=== PATIENT | female | born 1970 | race Caucasian/White ===

== ENCOUNTER → 2016-09-23 | Day surgery (SDC) | payer BC ==
[2016-09-23] VITALS (11 sets, daily range): BP systolic 106–160; BP diastolic 45–80; PULSE 55–71; TEMP 36.6–37; O2SAT 93–97; Ht 170.2 cm; Wt 113.0 kg
[~2016-09-23] VITALS: Ht 170.2 cm; Wt 113.0 kg
[~2016-09-23] MED LIST: ACETAMINOPHEN 500 MG TAB PO PRN; CYAN100T SQ; ERGO1CAP35 PO; FRS/40 PO; LEVO150T PO; LEVO200T PO; LEVOIUD; LIOT5TAB PO; MULT-506 PO; POTASSIUM 99 PO; PRLSR20 PO
--- NOTE | 2016-09-23 09:53 | Discharge Instructions ---
Discharge Instructions Procedure Procedure Date: Sep 23, 2016. Reason for visit: Paplidema W/Opening Pressure. Discharge Discharge Date: Sep 23, 2016. Discharge Diagnosis: Papilledema. Status post lumbar puncture with opening and closing pressures. Instructions Activity Recommendations: 48 Hours of decreased exertion Return to School/Work: no limitations Recommended Home Diet: Resume Previous Diet Allergies Coded Allergies: Gluten (Verified Allergy, Mild, PER PT -ADVISED, 09/23/16) No Known Drug Allergy (Verified Allergy, Unknown, NONE, 09/23/16) Donita Washington Recommendations: Call your doctor if: * Temperature above 101 degrees * Pain not relieved by pain medicine ordered * There is increased drainage or redness from any incision * You have any unanswered questions or concerns. Your Doctors Instructions noted above were prepared by provider Clemente Moss. Patient Signature Section: Patient Instructions Signature Page Ami Munoz Patient (or Guardian) Signature/Date: I have read and understand the instructions given to me by my caregivers. Caregiver/RN/Doctor Signature/Date: The above-named patient and/or guardian has received patient instructions on this date. + Original Patient Signature Page (only) stays with chart. Please make copy for patient.
--- NOTE | 2016-09-23 10:04 | DIAGNOSTIC IMAGING REPORT ---
LUMBAR PUNCTURE DIAGNOSTIC CLINICAL HISTORY: 46 years-old Female with papilledema and headaches. PROCEDURE: The risks, benefits, and alternatives to the procedure is discussed with the patient who voiced understanding. Written informed consent was obtained. The patient was placed prone on the fluoroscopy table. The lower back was prepped and draped in the usual sterile fashion. 1% lidocaine was used for local anesthesia. A 20-gauge spinal needle was inserted into the L2-L3 interlaminar space, and approximately 10 cc of clear colorless cerebrospinal fluid was removed. Opening pressure was recorded at 23 cm and the closing pressure was measured at 20 cm. The patient tolerated the procedure well. There were no immediate complications. The patient was then transported to the medical treatment unit for further observation. Fluoroscopy time: 0.5 minutes IMPRESSION: 1. Fluoroscopic guided lumbar puncture with removal of approximately 10 cc of cerebrospinal fluid. There were no immediate complications.. 2. Opening and closing pressures as above. The above report was generated using voice recognition software. It may contain grammatical, syntax or spelling errors. Electronically signed by: Blane Moss M.D. 09/23/2016 10:03 AM Dictated Date/Time: 09/23/2016 10:00 AM
[2016-09-23 10:54] LABS: CSF APPEARANCE CLEAR; CSF COLOR COLORLESS; CSF XANTHOCHROMIC NO XANTHOCHROMIA
== END | disposition home or self-care (01) ==
LOC: C.ACU 07:20
PROVIDERS: ATTEND Psychiatry & Neurology Neurology
DX: H47.10 Unspecified papilledema (principal)

== ENCOUNTER → 2016-09-26 | Day surgery (SDC) | payer BC ==
[~2016-09-26] MED LIST changes: -ACETAMINOPHEN 500 MG TAB PO PRN; -FRS/40 PO; -LIOT5TAB PO; -POTASSIUM 99 PO
[2016-09-26 11:08] VITALS: BP 154/88; PULSE 62; TEMP 36.7; O2SAT 96
--- NOTE | 2016-09-26 12:42 | Anesthesiology Progress Note ---
Anesthesia Progress Note Date of Service Sep 26, 2016. Progress Notes Pt is a 46F s/p lumbar puncture at [facility] on 09/23/16. Pt was being evaluated for pseudotumor cerebri and frontal headaches. The pt reports having a worsening frontal headache that is positional. She denies any lightheadedness, dizziness, fever, chills, or change in vision. The pt denies any h/o easy bruising or bleeding. I explained to her the risks/benefits of an epidural blood patch. The pt was agreeable to receiving the epidural blood patch. Consent was obtained from the patient. A timeout was performed. The L3-4 interspace was identified. The area was sterilely prepped and draped. 1% lidocaine skin wheal was placed. A 17 gauge Touhy needle was advanced with +GERTRUDIS to air at 9cm. There was no blood or CSF or paresthesias. The FORENSICS TEAM DIRECTOR sterilely withdrew the pt's blood from her right A/C vein. 27mL of the pt's blood was injected into the epidural space. The pt tolerated the procedure. The pt was instructed to lay flat for 30 minutes, and upon re-evaluation, the pt stated having a much improved MONTOYA. I spoke to the pt about returning to the ER if symptoms worsened or if she developed any fevers, chills, back pain, or leg numbness. The pt was understanding. Vital signs were stable throughout. The pt was otherwise stable for discharge.
--- NOTE | 2016-09-26 12:44 | Discharge Instructions ---
Discharge Instructions Date of Service Sep 26, 2016. Visit Reason for Visit: Intracranial Hypotension Discharge Discharge Diagnosis / Problem: Postdural puncture headache Discharge Goals Goal(s): Decrease discomfort Activity Recommendations Activity Limitations: resume your previous activity Anesthesia . Post Anesthesia Instructions: If you have had General Anesthesia or IV Sedation: * Do not drive today. * Resume driving when surgeon permits. * Do not make important decisions or sign legal documents today. * Call surgeon for: 1. Temperature elevations greater than 101 degrees F. 2. Uncontrollable pain. 3. Excessive bleeding. 4. Persistent nausea and vomiting. 5. Medication intolerance (nausea, vomiting or rash). * For nausea and vomiting use only clear liquids such as: tea, soda, bouillon until nausea subsides, then gradually increase diet as tolerated. * If you have any concerns or questions, call your surgeon's office. If physician is unavailable and it is an emergency, call 911 or go to the nearest emergency room. . Diet Recommendations Recommended Home Diet: no limitations, resume previous diet Procedures Procedures Performed: Epidural blood patch Pending Studies Studies pending at discharge: no Medical Emergencies . Who to Call and When: Medical Emergencies: If at any time you feel your situation is an emergency, please call 911 immediately. . Non-Emergent Contact Non-Emergency issues call your: Primary Care Provider Call Non-Emergent contact if: you have a fever, temperature is above 100.5, your pain is not controlled, your pain is worsening . . "Provider Documentation" section prepared by John Moncada. .
== END | disposition home or self-care (01) ==
LOC: C.ACU 10:44
PROVIDERS: ATTEND Psychiatry & Neurology Neurology
DX: G93.89 Other specified disorders of brain (principal); E03.9 Hypothyroidism, unspecified; Z98.84 Bariatric surgery status; E66.9 Obesity, unspecified

== ENCOUNTER → 2016-11-21 | Outpatient (CLI) | payer BC ==
[~2016-11-21] MED LIST changes: +OPTIRAY 320 IV PRN
--- NOTE | 2016-11-21 16:22 | DIAGNOSTIC IMAGING REPORT ---
CT HEAD VENOGRAM HISTORY: Headache. PSEUDO TUMOR CEREBRI TECHNIQUE: Multiaxial CT images of the head were performed both before and after the intravenous administration of contrast to evaluate the major dural venous structures. 3-D reformations were performed at the workstation by the radiologist. COMPARISON STUDY: None. FINDINGS: No mass, hematoma, midline shift, acute infarct. The ventricles are normal in size. The major dural venous structures are patent. IMPRESSION: No evidence for dural venous sinus thrombosis. No acute intracranial abnormality. Electronically signed by: Mauricio Mendiola M.D. 11/21/2016 4:20 PM Dictated Date/Time: 11/21/2016 4:11 PM
== END | disposition home or self-care (01) ==
LOC: C.CTS 15:33
PROVIDERS: ATTEND Psychiatry & Neurology Neurology
DX: G93.2 Benign intracranial hypertension (principal)

== ENCOUNTER → 2017-07-08 | Outpatient (CLI) | payer OTHER, BC ==
[~2017-07-08] MED LIST changes: +LEVO1IUD2; -LEVOIUD; -OPTIRAY 320 IV PRN
--- NOTE | 2017-07-08 15:02 | DIAGNOSTIC IMAGING REPORT ---
R KNEE 3 VIEWS CLINICAL HISTORY: RIGHT KNEE PAIN S/P INJURY COMPARISON: Right knee radiographs May 08, 2016. FINDINGS: Alignment of the right knee is anatomic. There is no fracture or suspicious lesion. There is moderate joint space narrowing with ossified ptosis of the patellofemoral compartment. There is tricompartmental osteophytosis of the right knee. A small right knee joint effusion is present. IMPRESSION: 1. No acute fracture. 2. Small right knee joint effusion. 3. Moderate osteoarthritis of the right knee, most pronounced within the patellofemoral compartment. Electronically signed by: Cuco Aguilar M.D. 07/08/2017 3:01 PM Dictated Date/Time: 07/08/2017 2:59 PM
== END | disposition home or self-care (01) ==
LOC: C.RAD1850 14:47
PROVIDERS: ATTEND Nurse Practitioner Adult Health
DX: M17.11 Unilateral primary osteoarthritis, right knee (principal); S89.91XA Unspecified injury of right lower leg, initial encounter; X58.XXXA Exposure to other specified factors, initial encounter

== ENCOUNTER 2022-12-20 21:03 | Observation (INO) ==
[2022-12-20] MEDS ORDERED: SODIUM CHLORIDE 0.9% 1,000 ML IV SCH (22:00)
--- NOTE | 2022-12-20 22:04 | Emergency Department Note ---
History of Present Illness General Chief complaint: Syncope Stated complaint: SYNCOPE Time Seen by Provider: 12/20/22 21:31 History of Present Illness This 52-year-old female presents the ER for syncopal episode tonight. Patient states she was at [employer] and had notches with her family and an alcoholic beverage and then shortly afterwards she felt warm clammy lightheaded and briefly passed out while sitting in the chair. She did not fall to the ground. Blood sugar was 220 per nursing by EMS. Patient states she felt fine all day. Patient states she feels fine now and has no current symptoms. She denies chest pain, dyspnea, headache, neck pain, fever, chills, flulike illness. No prior heart disease. No other concerns per patient. Home Medications Medication Instructions Recorded Confirmed Type calcium citrate 500 mg-vitamin D3 1 tab PO DAILY 12/20/22 12/20/22 History 12.5 mcg (500 unit) chewable tablet levothyroxine 200 mcg tablet 200 mcg PO DAILYBB 12/20/22 12/20/22 History loratadine 10 mg tablet (Claritin) 10 mg PO DAILY 12/20/22 12/20/22 History losartan 50 mg tablet 50 mg PO DAILY 12/20/22 12/20/22 History metoprolol succinate 25 mg 25 mg PO BID 12/20/22 12/20/22 History tablet,extended release 24 hr multivit-iron 18 mg-folic acid 400 1 tab PO DAILY 12/20/22 12/20/22 History mcg-calcium 500 mg-minerals tablet (Women's One Daily) omeprazole 20 mg capsule,delayed 20 mg PO DAILY 12/20/22 12/20/22 History release semaglutide (weight loss) 1.7 1.7 mg subcut WK 12/20/22 12/20/22 History mg/0.75 mL subcutaneous pen injector (Wegovy) torsemide 20 mg tablet 20 mg PO [id number] 12/20/22 12/20/22 History Allergies Allergy/AdvReac Type Severity Reaction Status Date / Time gluten Allergy Unknown POSITIVE Verified 12/20/22 22:30 ALLERGY TEST Past Med/Surg History Social History Smoking Status: Never smoker Preferred Language: Liberian Feels Safe at Home: Yes Review of Systems A total of 10 systems reviewed and were otherwise negative Physical Exam Vital Signs Vital Signs - 24 hr 12/20/22 21:10 12/20/22 21:10 12/20/22 21:10 Temperature 36.8 C Temperature Source Oral Pulse Rate - Lying Pulse Rate - Sitting Pulse Rate - Standing Pulse Rate 80 Pulse Rate [Bilateral] 80 Respiratory Rate 16 14 Respiratory Effort / Characteristics Non-Labored Respiratory Depth Normal Respiratory Pattern Regular Blood Pressure - Lying Blood Pressure - Sitting Blood Pressure- Standing Blood Pressure 136/64 Blood Pressure [Right Arm] 136/64 Blood Pressure Mean 88 Blood Pressure Mean [Right Arm] 88 Pulse Oximetry 95 98 95 Oxygen Delivery Method Room Air Room Air Room Air Sepsis Recent Fever Within 48 Hours No Sepsis New/Unexplained Change in Mental Status N/A Sepsis Action Taken by Nursing No Action Required 12/20/22 21:18 12/20/22 21:56 12/20/22 21:56 Temperature Temperature Source Pulse Rate - Lying 78 Pulse Rate - Sitting 85 Pulse Rate - Standing 93 H Pulse Rate 80 Pulse Rate [Bilateral] Respiratory Rate Respiratory Effort / Characteristics Respiratory Depth Respiratory Pattern Blood Pressure - Lying 127/75 Blood Pressure - Sitting 137/86 Blood Pressure- Standing 133/95 Blood Pressure Blood Pressure [Right Arm] Blood Pressure Mean Blood Pressure Mean [Right Arm] Pulse Oximetry 99 Oxygen Delivery Method Room Air Sepsis Recent Fever Within 48 Hours Sepsis New/Unexplained Change in Mental Status Sepsis Action Taken by Nursing 12/20/22 22:00 12/20/22 22:54 Temperature Temperature Source Pulse Rate - Lying Pulse Rate - Sitting Pulse Rate - Standing Pulse Rate Pulse Rate [Bilateral] 76 93 H Respiratory Rate 18 18 Respiratory Effort / Characteristics Respiratory Depth Respiratory Pattern Blood Pressure - Lying Blood Pressure - Sitting Blood Pressure- Standing Blood Pressure Blood Pressure [Right Arm] 122/77 133/95 Blood Pressure Mean Blood Pressure Mean [Right Arm] 92 107 Pulse Oximetry 94 98 Oxygen Delivery Method Room Air Room Air Sepsis Recent Fever Within 48 Hours Sepsis New/Unexplained Change in Mental Status Sepsis Action Taken by Nursing VITALS: Vitals are noted on the nurse's note and reviewed by myself. Vital signs stable. GENERAL: Pleasant female with family present, in no acute distress, nondiaphoretic, well-developed well-nourished. SKIN: The skin was without rashes, erythema, edema, or bruising. There is no tenting of the skin. Capillary reflex less than 2 seconds. HEAD: Normocephalic atraumatic. EARS: External auditory canals clear, EYES: Pupils equal round and reactive to light and accommodation. Conjunctivae without injection, sclerae without icterus. Extraocular movements intact. NOSE: Patent, turbinates without inflammation or discharge. MOUTH: Mucous membranes moist. Pharynx without erythema or exudate. Uvula midline. Airway patent. Tongue does not deviate. NECK: Supple without nuchal rigidity. No lymphadenopathy. No thyromegaly. Cervical spine is nontender. No JVD. HEART: Regular rate and rhythm LUNGS: Clear to auscultation bilaterally without wheezes, rales or rhonchi. No retractions or accessory muscle use. ABDOMEN: Positive bowel sounds x 4. Normal tympanic percussion. Soft, nontender, without masses or organomegaly. Contreras sign negative. No guarding or rebound tenderness. No CVA tenderness MUSCULOSKELETAL: No muscle atrophy, erythema, or edema noted. NEURO: Patient was alert and oriented to person place and time. Normal sensation to light and sharp touch. No focal neurological deficits. Course Administered Medications Discontinued Medications Sodium Chloride (Nss) 1,000 mls @ 999 mls/hr IV .Q1H1M LUPE Stop: 12/20/22 23:00 Last Admin: 12/20/22 23:00 Dose: 999 mls/hr Documented By: CHRISTOPHER Medical Decision Making Medical Records Attestation: I reviewed the patient's medical records. Home Medications Current Medication List: was personally reviewed by dc Laboratory Data Attestation: I reviewed the patient's lab results. 12/20/22 21:50 12/20/22 21:50 Lab Results 12/20/22 Range/Units 21:50 WBC 11.24 H (4.8-10.8) K/ul RBC 4.90 (4.20-5.40) M/uL Hgb 14.9 (12.0-16.0) g/dl Hct 43.8 (37.0-47.0) % MCV 89.4 (80.0-100.0) fL MCH 30.4 (25.0-34.0) pg MCHC 34.0 (32.0-36.0) g/dL RDW Std Deviation 43.3 (36.4-46.3) fL RDW Coeff of Obie 13.2 (11.5-14.5) % Plt Count 371 (130-400) K/uL MPV 9.7 (9.4-12.4) fL Immature Gran % (Auto) 0.4 % Neut % (Auto) 68.5 % Lymph % (Auto) 20.4 % [place] % (Auto) 7.7 % Eos % (Auto) 2.0 % Baso % (Auto) 1.0 % Neut # (Auto) 7.72 H (1.40-6.50) K/uL Lymph # (Auto) 2.29 (1.20-3.40) K/uL [place] # (Auto) 0.86 H (0.11-0.59) K/uL Eos # (Auto) 0.22 (0.00-0.50) K/uL Baso # (Auto) 0.11 (0.00-0.20) K/uL Immature Gran # (Auto) 0.04 (0.01-0.20) K/uL Sodium 136 (136-145) mmol/L Potassium 3.5 (3.5-5.1) mmol/L Chloride 103 (98-107) mmol/L Carbon Dioxide 25 (21-32) mmol/L Anion Gap 8 (3-11) BUN 18 (6-23) mg/dl Creatinine 1.35 H (0.6-1.2) mg/dl Est Cr Clr Drug Dosing Not Reportable Est GFR ( Amer) 51.8 ml/min Est GFR (Non-Af Amer) 44.7 ml/min BUN/Creatinine Ratio 13.3 (10-20) Glucose 96 (70-99(Fasting)) mg/dl Calcium 10.3 (8.6-10.3) mg/dl Magnesium 1.8 (1.7-2.4) mg/dl Total Bilirubin 0.4 (0.2-1.0) mg/dl AST 21 (13-39) U/L ALT 19 (7-52) U/L Alkaline Phosphatase 64 (34-104) U/L Total Creatine Kinase 137 (26-192) U/L Troponin I High Sens 3.5 (0-14) pg/ml Total Protein 8.5 H (6.0-8.3) gm/dl Albumin 4.1 (3.4-5.0) gm/dl Globulin 4.4 H (2.5-4.0) gm/dl Albumin/Globulin Ratio 0.9 (0.9-2) TSH 0.547 (0.300-4.500) uIu/ml HCG, Qual Negative (Negative) Ethyl Alcohol mg/dL < 10.0 (<10.0) mg/dl Imaging Data Attestation: I personally reviewed and interpreted this imaging study as follows: Radiologist's Impression: Head CT 12/20/22 21:57 Exam(s): CT HEAD Without Contrast EXAM: CT Head Without Intravenous Contrast CLINICAL HISTORY: Reason for exam: syncope. TECHNIQUE: Axial computed tomography images of the head/brain without intravenous contrast. CTDI is 35.65 mGy and DLP is 547.75 mGy-cm. Automated exposure control was utilized for the study. A dose lowering technique was utilized adhering to the principles of ALARA. COMPARISON: 11/21/2016 FINDINGS: Brain: Unremarkable. No hemorrhage. No significant white matter disease. No edema. Ventricles: Unremarkable. No ventriculomegaly. Bones/joints: Unremarkable. No acute fracture. Soft tissues: Unremarkable. Sinuses: Unremarkable as visualized. No acute sinusitis. Mastoid air cells: Unremarkable as visualized. No mastoid effusion. IMPRESSION: Normal head/brain CT. Electronically signed by: Bjorn Childs M.D. 12/20/22 23:00 PM [facility] Narrative Prior records/ancillary studies reviewed. Triage Nursing notes reviewed. Additional history obtained from family. The patient's history was concerning for syncope. Differential diagnosis: Etiologies such as vasovagal event, infection, hypoglycemia, electrolyte abnormalities, cardiac sources, intracerebral event, toxicologic, neurologic, as well as others were entertained. Physical examination: Patient is alert, interactive and well-appearing ER treatment provided: IV hydration with normal saline On reassessment the patient felt better. An order was placed for continuous cardiac monitoring. The monitor shows a rate of 60-100 with a sinus rhythm per my interpretation. Diagnostics interpretation by me: ECG: ordered for syncope ECG: Normal sinus, normal intervals, Q waves in the inferior leads, no acute ST- T wave changes, rate of 87. Impression normal sinus rhythm Q waves in the inferior leads independently interpreted by myself I think arrhythmia is unlikely. EKG shows normal sinus rhythm with no interval abnormalities such as QT prolongation or WPW. There are no findings to suggest Brugada syndrome. Cardiac monitoring in the emergency department reveals no tachycardic or bradycardic dysrhythmia. Hypertrophic cardiomyopathy was considered but there are no clear historical elements pointing toward this. EKG is not suggestive. The QRS voltage is not extremely large The labs Independently Interpreted by myself revealed stable H&H, negative troponin, euthyroid, negative hCG Creatinine 1.35. No priors for review Imaging studies: Head CT negative for intracranial bleed per my independent interpretation. Report was reviewed as above Consultation: A consultation was placed with the hospitalist. The case was discussed and diagnostics were reviewed. The patient was evaluated in the ER for further treatment. This appears to be consistent with syncope while sitting. No acute findings on laboratory testing. Nonischemic EKG. Stable labs. Patient is agreeable treatment plan of admission. Medicine was consulted and the case is discussed. Patient will be admitted for further evaluation and work-up for her syncopal episode tonight. By the evaluation outlined above emergent etiologies such as infection, hypoglycemia, electrolyte abnormalities, toxicologic, as well as others were deemed relatively unlikely. The pt informed about the findings as listed above. All questions were answered and pleased with the treatment. The chart was completed utilizing [employer] Speech voice recognition software. Grammatical errors, random word insertions, pronoun errors, and incomplete sentences are an occassional consequence of this system due to software limitations, ambient noise, and hardware issues. Any formal questions or concerns about the content, text, or information contained within the body of this dictation should be directly addressed to the physician construction assistant for clarification. Impression & Plan Syncope Discharge Plan Visit Data Chief Complaint: Syncope Stated Complaint: SYNCOPE ED Provider: Jake Egan ED Midlevel Provider: Charu Doe Discharge Problem: Syncope Patient Disposition: Admitted As Inpatient Condition: Good Forms Stand Alone Forms: My [facility] [employer] Prescriptions Prescriptions: No Action losartan 50 mg tablet 50 mg PO DAILY torsemide 20 mg tablet 20 mg PO [id number] Rx Instructions: TAKES FRIDAY THROUGH FRIDAY. omeprazole 20 mg capsule,delayed release(DR/EC) 20 mg PO DAILY levothyroxine 200 mcg tablet 200 mcg PO DAILYBB metoprolol succinate 25 mg tablet extended release 24 hr 25 mg PO BID loratadine [Claritin] 10 mg Tablet 10 mg PO DAILY Women's One Daily 18 mg iron-400 mcg-500 mg Ca Tablet 1 tab PO DAILY Wegovy 1.7 mg/0.75 mL pen injector 1.7 mg SUBCUT WK Rx Instructions: TAKES SUNDAYS calcium citrate-vitamin D3 500 mg-12.5 mcg (500 unit) Tablet,Chewable 1 tab PO DAILY Referrals Referrals: Jude Cano MD [Primary Care Provider] - Discharge Problem: Syncope Qualifiers: Syncope type: unspecified Qualified Code(s): R55 - Syncope and collapse
[2022-12-20 22:14] LABS: Basophils # (auto) 0.11 K/uL (0.00-0.20); Eosinophils # (auto) 0.22 K/uL (0.00-0.50); Hematocrit (blood only) 43.8 % (37.0-47.0); Hemoglobin 14.9 g/dl (12.0-16.0); Immature Granulocytes # (auto) 0.04 K/uL (0.01-0.20); Immature Granulocytes % (auto) 0.4 %; Lymphocytes # (auto) 2.29 K/uL (1.20-3.40); Lymphocytes % (auto) 20.4 %; Mean Corpuscular Hemoglobin 30.4 pg (25.0-34.0); Mean Corpuscular Volume 89.4 fL (80.0-100.0); Mean Platelet Volume 9.7 fL (9.4-12.4); Monocytes # (auto) 0.86 K/uL (0.11-0.59); Monocytes % (auto) 7.7 %; Neutrophils # (auto) 7.72 K/uL (1.40-6.50); Neutrophils % (auto) 68.5 %; Platelet Count 371 K/uL (130-400); RDW Coefficient of Variation 13.2 % (11.5-14.5); RDW Standard Deviation 43.3 fL (36.4-46.3); White Blood Count 11.24 K/ul (4.8-10.8)
[2022-12-20 22:25] LABS: Alanine Aminotransferase 19 U/L (7-52); Albumin Globulin Ratio 0.9 (0.9-2); Albumin Level 4.1 gm/dl (3.4-5.0); Alkaline Phosphatase 64 U/L (34-104); Anion Gap 8 (3-11); Aspartate Aminotransferase 21 U/L (13-39); BUN Creatinine Ratio 13.3 (10-20); Bilirubin,Total 0.4 mg/dl (0.2-1.0); Blood Urea Nitrogen 18 mg/dl (6-23); Calcium 10.3 mg/dl (8.6-10.3); Carbon Dioxide 25 mmol/L (21-32); Chloride 103 mmol/L (98-107); Creatine Kinase 137 U/L (26-192); Est GFR (African American) 51.8 ml/min; Est GFR (Non-African American) 44.7 ml/min; Globulin 4.4 gm/dl (2.5-4.0); Glucose 96 mg/dl (70-99(Fasting)); Magnesium 1.8 mg/dl (1.7-2.4); Potassium 3.5 mmol/L (3.5-5.1); Sodium 136 mmol/L (136-145); Total Protein 8.5 gm/dl (6.0-8.3)
[2022-12-20 22:29] LABS: Pregnancy Test, Serum Negative (Negative)
[2022-12-20 22:31] LABS: Troponin I High Sensitivity 3.5 pg/ml (0-14)
[2022-12-20 22:41] LABS: Thyroid Stimulating Hormone 0.547 uIu/ml (0.300-4.500)
--- NOTE | 2022-12-20 23:01 | CT Scan Report ---
Exam(s): CT HEAD Without Contrast EXAM: CT Head Without Intravenous Contrast CLINICAL HISTORY: Reason for exam: syncope. TECHNIQUE: Axial computed tomography images of the head/brain without intravenous contrast. CTDI is 35.65 mGy and DLP is 547.75 mGy-cm. Automated exposure control was utilized for the study. A dose lowering technique was utilized adhering to the principles of ALARA. COMPARISON: 11/21/2016 FINDINGS: Brain: Unremarkable. No hemorrhage. No significant white matter disease. No edema. Ventricles: Unremarkable. No ventriculomegaly. Bones/joints: Unremarkable. No acute fracture. Soft tissues: Unremarkable. Sinuses: Unremarkable as visualized. No acute sinusitis. Mastoid air cells: Unremarkable as visualized. No mastoid effusion. IMPRESSION: Normal head/brain CT. Electronically signed by: Bjorn Childs M.D. 12/20/22 23:00 PM
[2022-12-20 23:12] LABS: Appearance Urine Cloudy (Clear); Bacteria Urine Automated Negative (Negative); Blood Urine Negative (Negative); Color Urine Dark Yellow; Epithelial Cell Urine Auto >30 /lpf (0-5); Glucose Urine UA Negative (Negative); Ketones Urine Trace (Negative); Leukocyte Esterase Urine Trace (Negative); Nitrite Urine Negative (Negative); Protein Urine 1+ (Negative); RBC Urine Automated 0-4 /hpf (0-4); Specific Gravity Urine 1.023 (1.000-1.030); Urobilinogen Urine Negative (Negative)
[2022-12-20 23:23] LABS: Bilirubin Urine 1+ (Negative)
[2022-12-20 23:25] LABS: Mucus Urine Present (None Prsent)
[2022-12-20] MEDS ORDERED: MAGNESIUM SULFATE / D5W 1 GM/100 ML BAG IV ONE (23:45)
[2022-12-21] MEDS ORDERED: NSS + 20MEQ KCL 20 MEQ/1,000 ML BAG IV ONE (00:30)
--- NOTE | 2022-12-21 00:52 | History & Physical Report ---
Date of Service December 21, 2022 Assessment & Plan (1) Syncope: Plan: Possible orthostasis given mild clinical dehydration on the basis of ARF, ketonuria Rule out arrhythmia; structural cardiac pathology, hx loculated pericardial effusion from TTEJan2022 hx diastolic dysfunction (EF 60 to 65%, TTE 2022), patient on the dry side hypertension, stable History of PVCs JONATHAN currently not on CPAP following weight loss from gastric bypass surgery as per patient account hypothyroidism, euthyroid as of today's TSH prediabetes, hemoglobin A1c of 6.20 July 2022 past tobacco abuse OBS Medical telemetry Check orthostatic vitals Monitor creatinine response to IVF Hold losartan until creatinine back to baseline Update TTE given syncope and history of pericardial effusion DVT prophylaxis. Boxbenox subcu Full code Text document was generated using oroeco voice recognition software. It may contain grammatical or spelling errors. Kindly contact undersigned for clarification of any documentation item in question. History of Present Illness Chief Complaint: Syncope Primary Care Provider: Jude Cano MD History obtained from patient and records. Medical history significant for diastolic dysfunction (EF 60 to 65%, TTE 2022), pericardial effusion as per records, hypertension, PVCs, JONATHAN currently not on CPAP following weight loss from gastric bypass surgery, GERD, celiac disease, hypothyroidism, prediabetes, MGUS, pseudotumor cerebri as per records, past tobacco abuse. Patient was having dinner with friends and family last night. Shortly after consuming an alcoholic beverage, patient felt clammy, lightheaded. Transient syncopal event witnessed by family and friends. No witnessed seizures. No previous episodes. No headache, no chest pain, no SOB, no palpitations, no abdominal pain. No prior episodes. Patient brought to the ER for evaluation. 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 Allergies Allergy/AdvReac Type Severity Reaction Status Date / Time gluten Allergy Unknown POSITIVE Verified 12/20/22 22:30 ALLERGY TEST Home Medications Medication Instructions Recorded Confirmed Type calcium citrate 500 mg-vitamin D3 1 tab PO DAILY 12/20/22 12/20/22 History 12.5 mcg (500 unit) chewable tablet levothyroxine 200 mcg tablet 200 mcg PO DAILYBB 12/20/22 12/20/22 History loratadine 10 mg tablet (Claritin) 10 mg PO DAILY 12/20/22 12/20/22 History losartan 50 mg tablet 50 mg PO DAILY 12/20/22 12/20/22 History metoprolol succinate 25 mg 25 mg PO BID 12/20/22 12/20/22 History tablet,extended release 24 hr multivit-iron 18 mg-folic acid 400 1 tab PO DAILY 12/20/22 12/20/22 History mcg-calcium 500 mg-minerals tablet (Women's One Daily) omeprazole 20 mg capsule,delayed 20 mg PO DAILY 12/20/22 12/20/22 History release semaglutide (weight loss) 1.7 1.7 mg subcut WK 12/20/22 12/20/22 History mg/0.75 mL subcutaneous pen injector (Wegovy) torsemide 20 mg tablet 20 mg PO 5XWK 12/20/22 12/20/22 History Past Med/Surg History Social History Smoking Status: Former smoker Tobacco Type: Cigarettes Smoking End Date: 2014; Second Hand Exposure: No; Hx Alcohol Use: Yes Alcohol type: wine and hard liquor Hx Substance Use: No Preferred Language: Lithuanian Communication Ability: Effective [employer]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 Beliefs That Will Affect Care: None Current Living Situation: Spouse Current Living Situation Comment: lives with jacklyn Other Information That Helps Us Care for You: No Feels Safe at Home: Yes Safety Concerns: Feels Safe At This Time Assistive Devices: None Review of Systems Review of Systems: As per HPI, all other systems reviewed and negative Physical Exam Physical Exam: GENERAL: Comfortable, pleasant, morbidly obese, no respiratory distress SKIN: Normal color, warm HEENT: [place] palpebral conjunctivae, no ptosis, dry buccal mucosa NECK : Supple, short neck, no tenderness CHEST : CTA, no tenderness HEART : RRR, no obvious murmurs ABDOMEN: Some distention, nontender EXTREMITIES : Minimal LE swelling, no LE tenderness, no other conspicuous deformities noted NEUROLOGIC : Coherent, no facial asymmetry, no other gross focality Results & Data Results & Data Vital Signs (Past 12 Hours) Vital Signs Temp Pulse Pulse Resp BP BP Pulse Ox 12/20/22 23:00 74 15 124/88 97 12/20/22 22:54 93 H 18 133/95 98 12/20/22 22:00 76 18 122/77 94 12/20/22 21:56 99 12/20/22 21:18 80 12/20/22 21:10 80 14 136/64 95 12/20/22 21:10 98 12/20/22 21:10 36.8 C 80 16 136/64 95 O2 Del Method 12/20/22 23:00 Room Air 12/20/22 22:54 Room Air 12/20/22 22:00 Room Air 12/20/22 21:56 Room Air 12/20/22 21:18 12/20/22 21:10 Room Air 12/20/22 21:10 Room Air 12/20/22 21:10 Room Air Laboratory Results Laboratory Results WBC 11.24 K/ul (4.8-10.8) H 12/20/22 21:50 RBC 4.90 M/uL (4.20-5.40) 12/20/22 21:50 Hgb 14.9 g/dl (12.0-16.0) 12/20/22 21:50 Hct 43.8 % (37.0-47.0) 12/20/22 21:50 MCV 89.4 fL (80.0-100.0) 12/20/22 21:50 MCH 30.4 pg (25.0-34.0) 12/20/22 21:50 MCHC 34.0 g/dL (32.0-36.0) 12/20/22 21:50 RDW Std Deviation 43.3 fL (36.4-46.3) 12/20/22 21:50 RDW Coeff of Obie 13.2 % (11.5-14.5) 12/20/22 21:50 Plt Count 371 K/uL (130-400) 12/20/22 21:50 MPV 9.7 fL (9.4-12.4) 12/20/22 21:50 Immature Gran % (Auto) 0.4 % 12/20/22 21:50 Neut % (Auto) 68.5 % 12/20/22 21:50 Lymph % (Auto) 20.4 % 12/20/22 21:50 [place] % (Auto) 7.7 % 12/20/22 21:50 Eos % (Auto) 2.0 % 12/20/22 21:50 Baso % (Auto) 1.0 % 12/20/22 21:50 Neut # (Auto) 7.72 K/uL (1.40-6.50) H 12/20/22 21:50 Lymph # (Auto) 2.29 K/uL (1.20-3.40) 12/20/22 21:50 [place] # (Auto) 0.86 K/uL (0.11-0.59) H 12/20/22 21:50 Eos # (Auto) 0.22 K/uL (0.00-0.50) 12/20/22 21:50 Baso # (Auto) 0.11 K/uL (0.00-0.20) 12/20/22 21:50 Immature Gran # (Auto) 0.04 K/uL (0.01-0.20) 12/20/22 21:50 Sodium 136 mmol/L (136-145) 12/20/22 21:50 Potassium 3.5 mmol/L (3.5-5.1) 12/20/22 21:50 Chloride 103 mmol/L (98-107) 12/20/22 21:50 Carbon Dioxide 25 mmol/L (21-32) 12/20/22 21:50 Anion Gap 8 (3-11) 12/20/22 21:50 BUN 18 mg/dl (6-23) 12/20/22 21:50 Creatinine 1.35 mg/dl (0.6-1.2) H 12/20/22 21:50 Est Cr Clr Drug Dosing Not Reportable 12/20/22 21:50 Est GFR ( Amer) 51.8 ml/min 12/20/22 21:50 Est GFR (Non-Af Amer) 44.7 ml/min 12/20/22 21:50 BUN/Creatinine Ratio 13.3 (10-20) 12/20/22 21:50 Glucose 96 mg/dl (70-99(Fasting)) 12/20/22 21:50 Calcium 10.3 mg/dl (8.6-10.3) 12/20/22 21:50 Magnesium 1.8 mg/dl (1.7-2.4) 12/20/22 21:50 Total Bilirubin 0.4 mg/dl (0.2-1.0) 12/20/22 21:50 AST 21 U/L (13-39) 12/20/22 21:50 ALT 19 U/L (7-52) 12/20/22 21:50 Alkaline Phosphatase 64 U/L (34-104) 12/20/22 21:50 Total Creatine Kinase 137 U/L (26-192) 12/20/22 21:50 Troponin I High Sens 3.5 pg/ml (0-14) 12/20/22 21:50 Total Protein 8.5 gm/dl (6.0-8.3) H 12/20/22 21:50 Albumin 4.1 gm/dl (3.4-5.0) 12/20/22 21:50 Globulin 4.4 gm/dl (2.5-4.0) H 12/20/22 21:50 Albumin/Globulin Ratio 0.9 (0.9-2) 12/20/22 21:50 TSH 0.547 uIu/ml (0.300-4.500) 12/20/22 21:50 HCG, Qual Negative (Negative) 12/20/22 21:50 Urine Color Dark Yellow 12/20/22 23:00 Urine Appearance Cloudy (Clear) A 12/20/22 23:00 Urine pH 5.0 (4.5-7.5) 12/20/22 23:00 Ur Specific [place] 1.023 (1.000-1.030) 12/20/22 23:00 Urine Protein 1+ (Negative) H 12/20/22 23:00 Urine Glucose (UA) Negative (Negative) 12/20/22 23:00 Urine Ketones Trace (Negative) H 12/20/22 23:00 Urine Blood Negative (Negative) 12/20/22 23:00 Urine Nitrite Negative (Negative) 12/20/22 23:00 Urine Bilirubin 1+ (Negative) H 12/20/22 23:00 Urine Urobilinogen Negative (Negative) 12/20/22 23:00 Ur Leukocyte Esterase Trace (Negative) H 12/20/22 23:00 Urine WBC (Auto) 5-10 /hpf (0-5) H 12/20/22 23:00 Urine RBC (Auto) 0-4 /hpf (0-4) 12/20/22 23:00 U Hyaline Cast (Auto) 10-30 /lpf (0-5) H 12/20/22 23:00 U Epithel Cells (Auto) >30 /lpf (0-5) H 12/20/22 23:00 Urine Bacteria (Auto) Negative (Negative) 12/20/22 23:00 Urine Mucus Present (None Prsent) A 12/20/22 23:00 Ethyl Alcohol mg/dL < 10.0 mg/dl (<10.0) 12/20/22 21:[address] 12/20/22 21:57 Exam(s): CT HEAD Without Contrast EXAM: CT Head Without Intravenous Contrast CLINICAL HISTORY: Reason for exam: syncope. TECHNIQUE: Axial computed tomography images of the head/brain without intravenous contrast. CTDI is 35.65 mGy and DLP is 547.75 mGy-cm. Automated exposure control was utilized for the study. A dose lowering technique was utilized adhering to the principles of ALARA. COMPARISON: 11/21/2016 FINDINGS: Brain: Unremarkable. No hemorrhage. No significant white matter disease. No edema. Ventricles: Unremarkable. No ventriculomegaly. Bones/joints: Unremarkable. No acute fracture. Soft tissues: Unremarkable. Sinuses: Unremarkable as visualized. No acute sinusitis. Mastoid air cells: Unremarkable as visualized. No mastoid effusion. IMPRESSION: Normal head/brain CT. Electronically signed by: Bjorn Childs M.D. 12/20/22 23:00 PM Diagnostic Findings Chest x-ray as per my interpretation borderline cardiomegaly, atelectasis EKG as per my interpretation : Rate 90, NSR, normal axis, inferior infarct, nonspecific T wave abnormalities (1) Syncope Syncope type: unspecified Qualified Code(s): R55 - Syncope and collapse
[2022-12-21] MEDS ORDERED: oxyCODONE HCL IR 5 MG TAB (IMMEDIATE RELEASE) PO PRN (00:55)
[2022-12-21] MEDS ORDERED: PROMETHAZINE HCL 12.5 MG in SODIUM CHLORIDE 0.9% 50 ML IV PRN (00:55)
[2022-12-21 04:31] LABS: Influenza A virus by PCR Negative (Neg); Influenza B virus by PCR Negative (Neg); RSV by PCR Negative (Neg); SARS CoV2 RNA(COVID-19) Ceph NEGATIVE (Negative)
[2022-12-21] MEDS ORDERED: ACETAMINOPHEN 325 MG TAB PO PRN (05:15)
[2022-12-21] MEDS ORDERED: PANTOprazole 40 MG TAB PO SCH (06:30)
[2022-12-21] MEDS ORDERED: LEVOTHYROXINE SODIUM 200 MCG TABLET PO SCH (06:30)
[2022-12-21 08:16] LABS: Basophils # (auto) 0.08 K/uL (0.00-0.20); Basophils % (auto) 0.9 %; Eosinophils # (auto) 0.15 K/uL (0.00-0.50); Eosinophils % (auto) 1.8 %; Hematocrit (blood only) 39.6 % (37.0-47.0); Hemoglobin 13.6 g/dl (12.0-16.0); Immature Granulocytes # (auto) 0.03 K/uL (0.01-0.20); Immature Granulocytes % (auto) 0.4 %; Lymphocytes # (auto) 2.14 K/uL (1.20-3.40); Mean Corpuscular Hemoglobin 30.9 pg (25.0-34.0); Mean Corpuscular Hgb Conc 34.3 g/dL (32.0-36.0); Mean Platelet Volume 9.9 fL (9.4-12.4); Monocytes # (auto) 0.62 K/uL (0.11-0.59); Monocytes % (auto) 7.2 %; Neutrophils # (auto) 5.54 K/uL (1.40-6.50); Neutrophils % (auto) 64.7 %; Platelet Count 306 K/uL (130-400); RDW Coefficient of Variation 13.4 % (11.5-14.5); RDW Standard Deviation 44.2 fL (36.4-46.3); White Blood Count 8.56 K/ul (4.8-10.8)
[2022-12-21 08:36] LABS: BUN Creatinine Ratio 14.9 (10-20); Calcium 9.4 mg/dl (8.6-10.3); Creatinine Clr Calc Pharmacy 77.8 ml/min; Est GFR (African American) 63.6 ml/min; Est GFR (Non-African American) 54.9 ml/min; Potassium 4.4 mmol/L (3.5-5.1)
[2022-12-21] MEDS ORDERED: LORATADINE 10 MG TAB PO SCH (09:00)
[2022-12-21] MEDS ORDERED: ENOXAPARIN INJ 40 MG/0.4 ML SYR SQ SCH (09:00)
[2022-12-21] MEDS ORDERED: METOPROLOL SUCC 25MG EXT REL TAB PO SCH (09:00)
[2022-12-21] MEDS ORDERED: INFLUENZA VIRUS QUADRIVALENT VACCINE (IIV4) 0.5 ML SYR IM ONE (09:00)
[2022-12-21] MEDS ORDERED: CEROVITE ADV FORMULA TAB PO SCH (09:00)
--- NOTE | 2022-12-21 10:08 | XRay Report ---
XR chest 1V portable CLINICAL HISTORY: renal failure TECHNIQUE: Single frontal radiograph of the chest was obtained. Comparison: None available at the time of this dictation. FINDINGS: No lines and tubes are seen. The cardiomediastinal silhouette is normal. The lungs are clear. No evid ence of pleural effusion or pneumothorax. IMPRESSION: No acute chest disease. ACT 112: Negative or not required by law. Electronically signed by: Uche Almazan M.D. 12/21/2022 10:07 AM
--- NOTE | 2022-12-21 13:29 | Hospitalist Progress Note ---
Date of Service December 21, 2022 Assessment & Plan (1) Syncope: Plan: per admitting service notes with addendum: Syncope secondary to Dehydration, in the setting of Alcohol Intake Ortho VS: negative Crea slightly increased to 1.[address] head: no acute process Echo: no pericardial effusion EF 60-65% Grade 2 Diastolic Dysfunction Telemetry: no arrhythmia feeling better crea normalized discharge to home, encouraged increase fluid intake PCP ff up this week hx diastolic dysfunction (EF 60 to 65%, TTE 2022), patient on the dry side hypertension, stable History of PVCs JONATHAN currently not on CPAP following weight loss from gastric bypass surgery as per patient account hypothyroidism, euthyroid as of today's TSH prediabetes, hemoglobin A1c of 6.20 July 2022 past tobacco abuse DVT prophylaxis. Lovenox subcu Full code plan of care discussed with patient in detail and at length all questions answered she is understanding, agreeable, comfortable with the plan of care Admission and Anticipated Discharge Date Admission Date: December 21, 2022 Subjective FF UP FOR SYNCOPE, ETC seen resting in bed, comfortable in good spirits states she feels better overall no chest pain, dyspnea, palpitations, dizziness ambulating in the room with no problems called in the afternoon to relay echo result still feeling fine states she is ok for discharge Review of Systems Review of Systems: all noted and negative except for above Physical Exam Physical Exam: General- oriented x 3, not in distress, speaks in sentences with no effort or accessory muscle use Eyes- anicteric Neck- no JVD Lungs- clear breath sounds bilaterally, no rales/wheezes Heart- normal rate, regular rhythm; no murmurs Abdomen- normal bowel sounds, nondistended, soft, nontender Extremities- no pretibial edema, no calf tenderness Neuro- alert, oriented x 3; no gross focal neurologic deficits Skin- warm & dry Results & Data Results & Data Vital Signs (Past 12 Hours) Vital Signs Temp Pulse Pulse Pulse Resp BP BP 12/21/22 11:30 36.6 C 53 L 15 118/79 12/21/22 10:21 69 12/21/22 08:19 36.5 C 70 15 120/82 12/21/22 05:21 36.6 C 66 20 135/84 12/21/22 05:10 74 12/21/22 03:29 12/21/22 02:00 74 108/61 Pulse Ox O2 Del Method 12/21/22 11:30 97 Room Air 12/21/22 10:21 12/21/22 08:19 95 Room Air 12/21/22 05:21 95 Room Air 12/21/22 05:10 12/21/22 03:29 Room Air 12/21/22 02:00 93 Room Air all noted and reviewed including below (1) Syncope Syncope type: unspecified Qualified Code(s): R55 - Syncope and collapse
--- NOTE | 2022-12-21 13:48 | Discharge Summary ---
Discharge Summary Date of Service December 21, 2022 Notes For Next Care Provider Medication Changes From Visit None Admission HPI Per Admitting Provider History obtained from patient and records. Medical history significant for diastolic dysfunction (EF 60 to 65%, TTE 2022), pericardial effusion as per records, hypertension, PVCs, JONATHAN currently not on CPAP following weight loss from gastric bypass surgery, GERD, celiac disease, hypothyroidism, prediabetes, MGUS, pseudotumor cerebri as per records, past tobacco abuse. Patient was having dinner with friends and family last night. Shortly after consuming an alcoholic beverage, patient felt clammy, lightheaded. Transient syncopal event witnessed by family and friends. No witnessed seizures. No previous episodes. No headache, no chest pain, no SOB, no palpitations, no abdominal pain. No prior episodes. Patient brought to the ER for evaluation. 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 Admission Exam Per Admitting Provider GENERAL: Comfortable, pleasant, morbidly obese, no respiratory distress SKIN: Normal color, warm HEENT: [place] palpebral conjunctivae, no ptosis, dry buccal mucosa NECK : Supple, short neck, no tenderness CHEST : CTA, no tenderness HEART : RRR, no obvious murmurs ABDOMEN: Some distention, nontender EXTREMITIES : Minimal LE swelling, no LE tenderness, no other conspicuous deformities noted NEUROLOGIC : Coherent, no facial asymmetry, no other gross focality Principal Dx & Hospital Course #1 = Principal Diagnosis (1) Syncope: per admitting service notes with addendum: Syncope secondary to Dehydration, in the setting of Alcohol Intake Ortho VS: negative Crea slightly increased to 1.[address] head: no acute process Echo: no pericardial effusion EF 60-65% Grade 2 Diastolic Dysfunction Left ventricular wall motion abnormalities No significant valvular disease Telemetry: no arrhythmia feeling better crea normalized discharge to home, encouraged increase fluid intake PCP ff up this week hx diastolic dysfunction (EF 60 to 65%, TTE 2022), patient on the dry side hypertension, stable History of PVCs JONATHAN currently not on CPAP following weight loss from gastric bypass surgery as per patient account hypothyroidism, euthyroid as of today's TSH prediabetes, hemoglobin A1c of 6.20 July 2022 past tobacco abuse DVT prophylaxis. Lovenox subcu Full code plan of care discussed with patient in detail and at length all questions answered she is understanding, agreeable, comfortable with the plan of care Discharge Exam General- oriented x 3, not in distress, speaks in sentences with no effort or accessory muscle use Eyes- anicteric Neck- no JVD Lungs- clear breath sounds bilaterally, no rales/wheezes Heart- normal rate, regular rhythm; no murmurs Abdomen- normal bowel sounds, nondistended, soft, nontender Extremities- no pretibial edema, no calf tenderness Neuro- alert, oriented x 3; no gross focal neurologic deficits Skin- warm & dry Updated Medication List Medication Instructions Recorded Confirmed Type calcium citrate 500 mg-vitamin D3 1 tab PO DAILY 12/20/22 12/20/22 History 12.5 mcg (500 unit) chewable tablet levothyroxine 200 mcg tablet 200 mcg PO DAILYBB 12/20/22 12/20/22 History loratadine 10 mg tablet (Claritin) 10 mg PO DAILY 12/20/22 12/20/22 History losartan 50 mg tablet 50 mg PO DAILY 12/20/22 12/20/22 History metoprolol succinate 25 mg 25 mg PO BID 12/20/22 12/20/22 History tablet,extended release 24 hr multivit-iron 18 mg-folic acid 400 1 tab PO DAILY 12/20/22 12/20/22 History mcg-calcium 500 mg-minerals tablet (Women's One Daily) omeprazole 20 mg capsule,delayed 20 mg PO DAILY 12/20/22 12/20/22 History release semaglutide (weight loss) 1.7 1.7 mg subcut WK 12/20/22 12/20/22 History mg/0.75 mL subcutaneous pen injector (Mylavroseanne) torsemide 20 mg tablet 20 mg PO 5XWK 12/20/22 12/20/22 History Hospital Stay Data Consultations 12/20/22 23:14 ED Decision to Admit Stat Diagnostic Imagining Performed Laboratory Results WBC 8.56 K/ul (4.8-10.8) 12/21/22 07:22 RBC 4.40 M/uL (4.20-5.40) 12/21/22 07:22 Hgb 13.6 g/dl (12.0-16.0) 12/21/22 07:22 Hct 39.6 % (37.0-47.0) 12/21/22 07: MCV 90.0 fL (80.0-100.0) 12/21/22 07: MCH 30.9 pg (25.0-34.0) 12/21/22 07: MCHC 34.3 g/dL (32.0-36.0) 12/21/22: RDW Std Deviation 44.2 fL (36.4-46.3) 12/21/22 07: RDW Coeff of Obie 13.4 % (11.5-14.5) 12/21/22 07: Plt Count 306 K/uL (130-400) 12/21/22 07: MPV 9.9 fL (9.4-12.4) 12/21/22 07: Immature Gran % (Auto) 0.4 % 12/21/22 07: Neut % (Auto) 64.7 % 12/21/22 07: Lymph % (Auto) 25.0 % 12/21/22 07:22 [place] % (Auto) 7.2 % 12/21/22 07:22 Eos % (Auto) 1.8 % 12/21/22 07: Baso % (Auto) 0.9 % 12/21/22: Neut # (Auto) 5.54 K/uL (1.40-6.50) 12/21/22 07: Lymph # (Auto) 2.14 K/uL (1.20-3.40) 12/21/22 07:22 [place] # (Auto) 0.62 K/uL (0.11-0.59) H 12/21/22 07:22 Eos # (Auto) 0.15 K/uL (0.00-0.50) 12/21/22 07: Baso # (Auto) 0.08 K/uL (0.00-0.20) 12/21/22 07: Immature Gran # (Auto) 0.03 K/uL (0.01-0.20) 12/21/22 07:22 Sodium 138 mmol/L (136-145) 12/21/22 07:22 Potassium 4.4 mmol/L (3.5-5.1) D 12/21/22 07:22 Chloride 106 mmol/L (98-107) 12/21/22 07:22 Carbon Dioxide 29 mmol/L (21-32) 12/21/22 07:22 Anion Gap 3 (3-11) 12/21/22 07:22 BUN 17 mg/dl (6-23) 12/21/22 07:22 Creatinine 1.14 mg/dl (0.6-1.2) 12/21/22 07:22 Est Cr Clr Drug Dosing 77.8 ml/min 12/21/22 07:22 Est GFR ( Amer) 63.6 ml/min 12/21/22 07:22 Est GFR (Non-Af Amer) 54.9 ml/min 12/21/22 07:22 BUN/Creatinine Ratio 14.9 (10-20) 12/21/22 07:22 Glucose 87 mg/dl (70-99(Fasting)) 12/21/22 07:22 Calcium 9.4 mg/dl (8.6-10.3) 12/21/22 07:22 Magnesium 1.8 mg/dl (1.7-2.4) 12/20/22 21:50 Total Bilirubin 0.4 mg/dl (0.2-1.0) 12/20/22 21:50 AST 21 U/L (13-39) 12/20/22 21:50 ALT 19 U/L (7-52) 12/20/22 21:50 Alkaline Phosphatase 64 U/L (34-104) 12/20/22 21:50 Total Creatine Kinase 137 U/L (26-192) 12/20/22 21:50 Troponin I High Sens 3.5 pg/ml (0-14) 12/20/22 21:50 Total Protein 8.5 gm/dl (6.0-8.3) H 12/20/22 21:50 Albumin 4.1 gm/dl (3.4-5.0) 12/20/22 21:50 Globulin 4.4 gm/dl (2.5-4.0) H 12/20/22 21:50 Albumin/Globulin Ratio 0.9 (0.9-2) 12/20/22 21:50 TSH 0.547 uIu/ml (0.300-4.500) 12/20/22 21:50 HCG, Qual Negative (Negative) 12/20/22 21:50 Urine Color Dark Yellow 12/20/22 23:00 Urine Appearance Cloudy (Clear) A 12/20/22 23:00 Urine pH 5.0 (4.5-7.5) 12/20/22 23:00 Ur Specific [place] 1.023 (1.000-1.030) 12/20/22 23:00 Urine Protein 1+ (Negative) H 12/20/22 23:00 Urine Glucose (UA) Negative (Negative) 12/20/22 23:00 Urine Ketones Trace (Negative) H 12/20/22 23:00 Urine Blood Negative (Negative) 12/20/22 23:00 Urine Nitrite Negative (Negative) 12/20/22 23:00 Urine Bilirubin 1+ (Negative) H 12/20/22 23:00 Urine Urobilinogen Negative (Negative) 12/20/22 23:00 Ur Leukocyte Esterase Trace (Negative) H 12/20/22 23:00 Urine WBC (Auto) 5-10 /hpf (0-5) H 12/20/22 23:00 Urine RBC (Auto) 0-4 /hpf (0-4) 12/20/22 23:00 U Hyaline Cast (Auto) 10-30 /lpf (0-5) H 12/20/22 23:00 U Epithel Cells (Auto) >30 /lpf (0-5) H 12/20/22 23:00 Urine Bacteria (Auto) Negative (Negative) 12/20/22 23:00 Urine Mucus Present (None Prsent) A 12/20/22 23:00 Ethyl Alcohol mg/dL < 10.0 mg/dl (<10.0) 12/20/22 21:50 SARS-CoV-2 (PCR) NEGATIVE (Negative) 12/21/22 03:43 Influenza Type A (PCR) Negative (Neg) 12/21/22 03:43 Influenza Type B (PCR) Negative (Neg) 12/21/22 03:43 RSV (RT-PCR) Negative (Neg) 12/21/22 03:[address] 12/20/22 21:57 Exam(s): CT HEAD Without Contrast EXAM: CT Head Without Intravenous Contrast CLINICAL HISTORY: Reason for exam: syncope. TECHNIQUE: Axial computed tomography images of the head/brain without intravenous contrast. CTDI is 35.65 mGy and DLP is 547.75 mGy-cm. Automated exposure control was utilized for the study. A dose lowering technique was utilized adhering to the principles of ALARA. COMPARISON: 11/21/2016 FINDINGS: Brain: Unremarkable. No hemorrhage. No significant white matter disease. No edema. Ventricles: Unremarkable. No ventriculomegaly. Bones/joints: Unremarkable. No acute fracture. Soft tissues: Unremarkable. Sinuses: Unremarkable as visualized. No acute sinusitis. Mastoid air cells: Unremarkable as visualized. No mastoid effusion. IMPRESSION: Normal head/brain CT. Electronically signed by: Bjorn Childs M.D. 12/20/22 23:00 PM Chest X-Ray 12/20/22 23:24 XR chest 1V portable CLINICAL HISTORY: renal failure TECHNIQUE: Single frontal radiograph of the chest was obtained. Comparison: None available at the time of this dictation. FINDINGS: No lines and tubes are seen. The cardiomediastinal silhouette is normal. The lungs are clear. No evidence of pleural effusion or pneumothorax. IMPRESSION: No acute chest disease. ACT 112: Negative or not required by law. Electronically signed by: Uche Almazan M.D. 12/21/2022 10:07 AM 12/20/22 21:57 CT head/brain wo con Stat Pending Results Patient Have Any Pending Studies at Discharge: No Discharge Instructions Given to Patient (Per Discharging Provider) PLEASE CALL YOUR PRIMARY CARE PHYSICIAN OR RETURN TO THE ER IF WITH WORSENING OF SYMPTOMS, INCLUDING weakness, dizziness, fever/chills, chest pain, shortness of breath, palpitations, etc FOLLOW UP WITH PRIMARY CARE PHYSICIAN IN 1 WEEK. THE CLINIC WILL BE CALLING YOU SOON FOR THE APPOINTMENT. Total Time Total Time Spent Total Time Spent (In Minutes): > 30 minutes
--- NOTE | 2022-12-22 17:50 | Electrocardiogram Report ---
Test Reason : Blood Pressure : / mmHG Vent. Rate : 087 BPM Atrial Rate : 087 BPM P-R Int : 154 ms QRS Dur : 082 ms QT Int : 446 ms P-R-T Axes : 068 028 025 degrees QTc Int : 536 ms Normal sinus rhythm Possible Inferior infarct , age undetermined Abnormal ECG No previous ECGs available Confirmed by Shaun Ann ([id number]) on 12/22/2022 5:50:18 PM Referred By: REFERRED SELF Confirmed By:Shaun Ann
== END 2022-12-21 14:20 | disposition home or self-care (01) ==
LOC: ED 21:03 → 2W 21:03